=== PATIENT | female | born 1960 ===

== ENCOUNTER 2018-02-02 07:09 | Day surgery (SDC) | payer MEDICARE, MEDICAID ==
[~2018-02-02] VITALS: Ht 121.9 cm; Wt 40.0 kg
[~2018-02-02 07:09] MED LIST: BONIVA150 MG PO; CALTRATE-600 W600 MG PO; COLACE 100100 MG/CAP PO; EFFEXOR XR75 MG/CAP PO; MICRONOR 5MG5 MG/TAB PO; MIRALAX 255 GM255 GM PO; PREMARIN 1.251.25 MG PO; PRILOSEC 20MG20 MG PO; PROVERA 10MG10 MG PO; SEROQUEL 2525 MG/TAB PO
[2018-02-02 08:05] VITALS: BP 139/77; PULSE 78; TEMP 98.4
[2018-02-02 11:00] VITALS: BP 122/77; PULSE 90; TEMP 99
[2018-02-02 11:08] VITALS: BP 122/77; PULSE 94; TEMP 98.5
== END 2018-02-02 11:45 | disposition home or self-care (01) ==
LOC: SDCO 07:09
DX: K05.10 Chronic gingivitis, plaque induced (principal); K13.70 Unspecified lesions of oral mucosa; F84.0 Autistic disorder; R41.89 Other symptoms and signs involving cognitive functions and awareness; K21.9 Gastro-esophageal reflux disease without esophagitis; M81.0 Age-related osteoporosis without current pathological fracture; Z79.899 Other long term (current) drug therapy
CPT/HCPCS: J1100; J2405; J2704; J3010; J7120

== ENCOUNTER 2021-10-14 06:37 | Day surgery (SDC) | payer MEDICARE, MEDICAID ==
[~2021-10-14] VITALS: Ht 134.6 cm; Wt 44.0 kg
[2021-10-14 07:33] VITALS: BP 138/87; PULSE 91; TEMP 97.3
[2021-10-14] MEDS ORDERED: VALIUM 10MG10 MG/TAB PO (08:18)
[2021-10-14] MEDS ORDERED: DEPAKOTE ER 25250 MG PO (08:26)
[2021-10-14 10:10] VITALS: BP 127/97; PULSE 104; TEMP 97.4
[2021-10-14 10:25] VITALS: BP 135/79; PULSE 82
[2021-10-14 10:40] VITALS: BP 129/86; PULSE 91
--- NOTE | 2021-10-14 11:30 | NUR ---
1010 PT RETURNED TO BAY 2 VIA CART. ALERT AND ORIENTED TO BASELINE FOR PT. PT IS NOT SHOWING NO SYMPTOMS OF ANY DISCOMFORT PER MOTHER AND CAREGIVER. MONITORS ATTACHED, INTERVALS AND ALARMS SET. VSS. PT CANNOT HAVE ICE CHIPS PER MOTHER AND CAREGIVERS. ICE WATER RPOVIDED. 1025 VSS. PT TOLERATING WATER WELL. JUICE AND ICE CREAM PROVIDED. 1040 VSS. PT SHOWING NO SYMPTOMS OF DISCOMFORT PER CAREGIVERS. 1100 PT UP TO RR, ABLE TO VOID WITHOUT COMPLICATION. IV REMOVED WITHOUT COMPLICATION. DISCHARGE INSTRUCTIONS AND EDUCATION PACKET REVIEWED AND ALL QUESTIONS ANSWERED. PT ALLOWED TO DRESS. 1130 PT AMBULATED WITH ASSIST FROM CAREGIVER, MOTHER AND RN TO PERSONAL VEHICLE TO BE DRIVEN HOME BY MOTHER.
[2021-10-14 11:31] VITALS: BP 128/84; PULSE 103; TEMP 98.1
== END 2021-10-14 11:30 | disposition home or self-care (01) ==
LOC: SDCO 06:37
DX: K08.89 Other specified disorders of teeth and supporting structures (principal); F84.0 Autistic disorder; R41.89 Other symptoms and signs involving cognitive functions and awareness; K21.9 Gastro-esophageal reflux disease without esophagitis
CPT/HCPCS: J1100; J2250; J2405; J2704; J3010; J7120

== ENCOUNTER 2023-11-30 06:01 | Day surgery (SDC) | payer MEDICARE, MEDICAID ==
[~2023-11-30] VITALS: Ht 121.9 cm; Wt 40.5 kg
[~2023-11-30 06:01] MED LIST changes: +DEPAKOTE ER 25250 MG PO; +Famotidine 20 MG TAB PO SCH; +LR 1,000 ML IV SCH; +VALIUM 10MG10 MG/TAB PO
[2023-11-30] MEDS ORDERED: Lidocaine PF 2% (20 MG/ML) 5 ML VIAL ONE (07:08)
[2023-11-30] MEDS ORDERED: fentaNYL 50 MCG/ML 2 ML VIAL ONE (07:08)
[2023-11-30] MEDS ORDERED: Ondansetron 4 MG/2 ML VIAL ONE (07:08)
[2023-11-30] MEDS ORDERED: dexAMETHasone 10 MG/ML VIAL ONE (07:08)
[2023-11-30] MEDS ORDERED: Succinylcholine PF 200 MG/10 ML SYRINGE IV ONE (07:08)
[2023-11-30] MEDS ORDERED: Rocuronium 50 MG/5 ML Multi-Dose VIAL ONE (07:12)
[2023-11-30 07:37] VITALS: BP 115/85; PULSE 84; TEMP 97.6
[2023-11-30] MEDS ORDERED: DEPAKOTE ER 25250 MG PO (07:49)
[2023-11-30 10:25] VITALS: BP 115/47; PULSE 99; TEMP 96.6
[2023-11-30 10:30] VITALS: BP 110/63; PULSE 102
[2023-11-30 11:16] VITALS: BP 115/47; PULSE 99; TEMP 97.4
--- NOTE | 2023-11-30 15:13 | NUR ---
1025- PATIENT BACK TO BAY 1 FROM PACU BY CART. MOTHER AND CAREGIVER AT BEDSIDE. REPORT GIVEN BY MORENA TERRAZAS. VSS. MOTHER CAN TELL PATIENT WOULD LIKE FOOD. NO OTHER NEEDS AT THIS TIME. CALL LIGHT IN REACH. 1035- PATIENT TOLERATED FOOD WELL. PATIENT IS STARTING TO GET RESTLESS AND READY TO GO HOME. MOTHER AND CAREGIVER ARE IN AGREEMENT. 1050- IV DC'D AT THIS TIME. TIP INTACT. 1100- DISCHARGE INSTRUCTIONS GIVEN. QUESTIONS ANSWERED. 1115- PATIENT TAKEN BY WHEELCHAIR TO OWN PERSONAL VEHICLE DRIVEN BY CAREGIVER.
== END 2023-11-30 11:15 ==
LOC: SDCO 06:01
DX: K05.6 Periodontal disease, unspecified (principal); F84.0 Autistic disorder; K21.9 Gastro-esophageal reflux disease without esophagitis
CPT/HCPCS: J0690; J1100; J2405; J2704; J3010; J7120